=== PATIENT | male | born 1990 | race Caucasian/White ===

== ENCOUNTER 2016-08-14 03:08 | Emergency (ER) | payer OTHER ==
[~2016-08-14 03:08] MED LIST: NORCO 5-325 TA1 EACH PO; NORCO 5/325 TAB1 TAB PO; SYNTHROID25 MC1 PO; VITAMIN C; VITAMIN D
[2016-08-14] MEDS ORDERED: NORCO 5-325 TA1 EACH PO (04:39)
[2016-08-21] MEDS ORDERED: HYDROCODON-ACE1 EA16 PO (15:00)
== END 2016-08-14 04:47 ==
LOC: EDMED 03:08
PROC: 0PSPXZZ Reposition Right Metacarpal, External Approach (ICD-10-PCS; principal; 2016-08-14)
DX: S62.326A Displaced fracture of shaft of fifth metacarpal bone, right hand, initial encounter for closed fracture (principal); F17.200 Nicotine dependence, unspecified, uncomplicated; W22.09XA Striking against other stationary object, initial encounter

== ENCOUNTER 2016-08-24 12:38 | Day surgery (SDC) | payer OTHER ==
[~2016-08-24 12:38] MED LIST changes: +HYDROCODON-ACE1 EA16 PO
== END 2016-08-24 18:25 ==
LOC: SHSC 12:38
PROC: 0PSP04Z Reposition Right Metacarpal with Internal Fixation Device, Open Approach (ICD-10-PCS; principal; 2016-08-24)
DX: S62.326A Displaced fracture of shaft of fifth metacarpal bone, right hand, initial encounter for closed fracture (principal); I10 Essential (primary) hypertension; F17.210 Nicotine dependence, cigarettes, uncomplicated; E66.9 Obesity, unspecified; Z68.38 Body mass index [BMI] 38.0-38.9, adult; Z98.890 Other specified postprocedural states; W22.8XXA Striking against or struck by other objects, initial encounter
CPT/HCPCS: C1713; J0690; J2250; J3010

== ENCOUNTER 2016-09-11 | Emergency (ER) | payer OTHER ==
[2016-09-11] MEDS ORDERED: NO HOME MEDICATION XX (02:51)
== END 2016-09-11 03:20 ==
DX: G89.18 Other acute postprocedural pain (principal); M79.641 Pain in right hand; R22.31 Localized swelling, mass and lump, right upper limb